=== PATIENT | female | born 1975 | race Caucasian/White ===

== ENCOUNTER 2022-08-10 11:59 | Emergency (ER) | payer BC, SELFPAY ==
[2022-08-10 12:11] VITALS: BP 132/92; PULSE 83; RESP 16; TEMP 36.4; O2SAT 99
--- NOTE | 2022-08-10 13:25 | ED.URI ---
HPI - URI/Sore Throat General Chief Complaint: Upper Respiratory Infection Stated Complaint: sinus pain, headache, cough, since easter Time Seen by Provider: 08/10/22 13:24 Source: patient and RN notes reviewed Mode of arrival: ambulatory Limitations: no limitations History of Present Illness HPI Narrative: 46-year-old female presents with concern for more than 1 month history of sinus pressure, cough, ear pain, feeling of wheezing. She reports she has taken Sudafed without much relief. Reports she has been more fatigued lately. She denies fever, aches, chills, sweats. MD elicited complaint: cough, nasal congestion and sinus pain Related Data Home Medications Medication Instructions Recorded Confirmed carvedilol 25 mg tablet mg 08/10/22 cyanocobalamin (vitamin B-12) mcg 08/10/22 1,000 mcg/mL injection solution hydromorphone 2 mg tablet mg 08/10/22 levothyroxine 50 mcg tablet mcg 08/10/22 methylphenidate HCl 20 mg mg PO 08/10/22 tablet,extended release pregabalin 100 mg capsule mg 08/10/22 spironolactone 25 mg tablet mg 08/10/22 tizanidine 4 mg tablet mg 08/10/22 trazodone 50 mg tablet mg 08/10/22 venlafaxine 150 mg mg PO 08/10/22 capsule,extended release 24 hr Allergies Allergy/AdvReac Type Severity Reaction Status Date / Time adhesive Allergy Unknown RASH Verified 08/10/22 12:59 latex Allergy Unknown RASH-CONDOMS, Verified 08/10/22 12:59 GLOVES Review of Systems Review of Systems: CONSTITUTIONAL: Denies malaise, chills, sweats, or fever. Reports fatigue EYES: Denies visual changes, redness, or discharge. ENT: Reports rhinorrhea, congestion, sinus pain, otalgia. Denies sore throat. CARDIOVASCULAR: Denies chest pain, palpitations, or edema. RESPIRATORY: Reports cough. Denies dyspnea. GASTROINTESTINAL: Denies abdominal pain, nausea, vomiting, diarrhea SKIN: Denies rash or itching. MUSCULOSKELETAL: Denies myalgia. NEUROLOGIC: Denies headache. All systems reviewed & are unremarkable except as noted in HPI and below PMFSH Family History Family History (Updated 06/21/16 @ 14:04 by DOCTOR UNKNOWN) Other Diabetes mellitus Family history of malignant neoplasm Family history of osteoarthritis Social History Social History Smoking status: Heavy tobacco smoker Alcohol intake: current Comments At time of signature, agree with nursing past medical, surgical, social and family history. There is no relevant family history pertinent to the presenting complaint Exam Narrative: GENERAL: Nontoxic-appearing and in no acute distress. HEAD: Normocephalic EYES: PERRLA, conjunctivae clear ENT: Nares clear, turbinates edematous and erythematous, clear discharge. Mucous membranes moist. TM pearly robb with short light reflex bilaterally; no tragal tenderness. Oropharynx not erythematous without lesions. Tonsils not enlarged and without exudate, no drooling, no hoarseness, no trismus, uvula midline. NECK: Supple. No lymphadenopathy CHEST: Clear to auscultation, breath sounds equal. No wheezing, rhonchi, rales, or stridor. No respiratory distress, speaks in full sentences. HEART: Regular rate and rhythm. No murmur heard. SKIN: Warm, dry, no rash. NEURO: Alert and oriented x3. PSYCH: Normal mood and affect Course Course Emergency Course: Patient is aware of diagnosis, understands and agrees to treatment plan. Anticipatory guidance given. Patient agrees to follow-up as directed and is aware of reasons to seek care at the emergency department. Portions of this record may have been created with voice recognition software Level of Care: Express Care Visit Vital Signs Vital signs: Vital Signs Temperature 97.6 F 08/10/22 12:11 Pulse Rate 83 08/10/22 12:11 Respiratory Rate 16 08/10/22 12:11 Blood Pressure 132/92 H 08/10/22 12:11 Pulse Oximetry 99 08/10/22 12:11 Oxygen Delivery Room Air 08/10/22 12:11 Temperature 97.6 F 08/10/22 12:11 Pulse Rate 83
== END 2022-08-10 13:38 | disposition home or self-care (01) ==
PROVIDERS: Emergency Provider Nurse Practitioner; PCP Family Medicine
DX: J40 Bronchitis, not specified as acute or chronic (principal); F17.200 Nicotine dependence, unspecified, uncomplicated
CPT/HCPCS: 99213; G0463

== ENCOUNTER → 2023-04-02 07:06 | Outpatient (CLI) | payer BC, SELFPAY ==
--- NOTE | ~2023-04-02 | MR_ITS ---
EXAMINATION: MR lumbar spine wo con DATE: 04/02/2023 07:49 INDICATION: Lumbar radiculopathy TECHNIQUE: Magnetic resonance imaging (MRI) of the lumbar spine was performed without intravenous con trast. Sequences included sagittal T2-weighted FSE, sagittal T2-weighted FS FSE, sagittal T1-weighted FSE, and axial T2-weighted FSE. COMPARISON: 04/27/2014 FINDINGS: Alignment is normal. Vertebral body heights are normal. Bone marrow signal is normal. Mild disc desic cation with mild disc height loss at L4-5 and minimal disc height loss at L3-L4 and L5-S1. There are annular fissures at L3-L4 and L4-L5. The conus medullaris terminates at L1. There is normal signal in the caudal spinal cord. A couple bands as metallic magnetic field artifact suggesting fixation screw s spanning the incompletely visualized right sacroiliac joint. There is no overlying region of likely scarring necrosis in the overlying subcutaneous fat posterior to the right posterior iliac spine. Pa ravertebral soft tissues are otherwise unremarkable. The following disc levels are specifically discu ssed: T11-T12: The disc does not extend beyond the endplate margin. There is mild right and moderate left f acet osteoarthritis. There is mild left neural foraminal stenosis. There is no central canal stenosis . T12-L1: The disc does not extend beyond the endplate margin. There is mild bilateral facet joint oste oarthritis. There is no neural foraminal stenosis. There is no central canal stenosis. L1-L2: The disc does not extend beyond the endplate margin. There is mild bilateral facet joint osteo arthritis. There is no neural foraminal stenosis. There is no central canal stenosis. L2-L3: The disc does not extend beyond the endplate margin. There is mild to moderate bilateral facet joint osteoarthritis. There is mild bilateral neural foraminal stenosis. There is no central canal s tenosis. L3-L4: Disc is mildly bulging. There is moderate left and mild to moderate right facet joint osteoart hritis. There is mild right and mild to moderate left neural foraminal stenosis. There is mild centra l canal stenosis. L4-L5: Disc is mildly bulging with superimposed small left foraminal zone disc protrusion. There is m oderate left and severe right facet joint osteoarthritis. There is moderate right and mild to moderat e left neural foraminal stenosis. There is mild central canal stenosis. L5-S1: There is slight central invagination at the previously mildly bulging posterior margin of the disc. There is mild left and moderate to severe right facet joint osteoarthritis. There is mild left and moderate right neural foraminal stenosis. There is no central canal stenosis. IMPRESSION: 1. Minimal progression of mild lower lumbar predominant spondylosis. Reviewed, dictated and finalized at location A. [employer]
== END ==
PROVIDERS: PCP Physical Medicine & Rehabilitation; Visit Provider Physical Medicine & Rehabilitation
DX: M43.06 Spondylolysis, lumbar region (principal)
CPT/HCPCS: 72148

== ENCOUNTER → 2023-05-19 16:13 | Outpatient (CLI) | payer BC, SELFPAY ==
--- NOTE | ~2023-05-19 | CT_ITS ---
EXAMINATION: CT thoracic spine wo con DATE: 05/19/2023 16:31 INDICATION: Mid back pain. TECHNIQUE: Computed tomography (CT) of the thoracic spine was performed without intravenous contrast. Automated exposure control and iterative reconstruction technique were employed. The dose-length pro duct was 1142.99 mGy-cm. COMPARISON: None FINDINGS: There is 5 degrees dextrocurvature of thoracic spine. There is mild chronic anterior wedgin g of T6-T11 vertebral bodies. There is mildly decreased disc height at T2-T3, severely decreased disc height at T3-T4 and T4-T5, moderately decreased disc height from T5-T6 through T8-T9, and severely d ecreased disc height at T9-T10. There is multilevel facet joint osteoarthritis, severe at many levels . On the right, there is mild neural foraminal stenosis from T1-T2 through T7-T8 and at T9-T10 and T1 0-T11. On the left, there is mild neural foraminal stenosis from T1-T2 through T5-T6, moderate neural foraminal stenosis at T6-T7, and mild neural foraminal stenosis at T7-T8, T8-T9, and T10-T11. There is mild central canal stenosis at T6-T7, T7-T8, T8-T9, and T9-T10. IMPRESSION: 1. Severe thoracic spondylosis. Reviewed, dictated and finalized at location A. CLINICAL REVIEW
== END ==
PROVIDERS: PCP Physical Medicine & Rehabilitation; Visit Provider Physical Medicine & Rehabilitation
DX: M43.04 Spondylolysis, thoracic region (principal)
CPT/HCPCS: 72128